=== PATIENT | female | born 1960 | race Caucasian/White ===

== ENCOUNTER 2017-03-03 16:25 | Emergency (ER) | payer MEDICARE ==
--- NOTE | 2017-03-03 17:24 | ER NURSING DOCUMENTATION ---
Nurse's Notes [facility] Name:Alyssa Dick Age:56 yrs Sex:Female :1960 Arrival Date:03/03/2017 Time:16:25 BedPortable Radiology Private MD: Diagnosis:Distal Fibula Fracture-: Acute, left Presentation: 03/03 16:28 Acuity: KEENA 4 rh 16:38 Presenting complaint: Patient states: Left ankle injury. Transition of care: Home. lp Notified ED Physician of Dr. Goldberg notified. 16:38 Method Of Arrival: Private Vehicle lp Triage Assessment: 16:40 General: Appears in no apparent distress, Behavior is appropriate for age. Pain: lp Complains of pain in left lateral ankle, left Achilles, left medial ankle and anterior aspect of left ankle Pain currently is 4 out of 10 on a pain scale. Cardiovascular: No deficits noted. Respiratory: No deficits noted. GI: : No deficits noted. Musculoskeletal: Circulation, motion, and sensation intact Capillary refill < 3 seconds other none noted mild edema. Historical: - Allergies: No known drug Allergies; - Home Meds: 1. doxycycline hyclate 75 mg oral TbEC 1 tab 2 times per day for Lyme Disease - PMHx: lyme disease; Recovering alcoholic; Spinal injury; - PSHx: Spinal Fusion; - Tetanus: < 10 years. - Ebola Screening: : Patient negative for fever greater than or equal to 101.5 degrees Fahrenheit, and additional compatible Ebola Virus Disease symptoms. Patient denies exposure to infectious person. Patient denies travel to an Ebola-affected area in the 21 days before illness onset. . - Immunization history: Pneumococcal vaccine is up to date, Flu Vaccine < 1 year. - Social history: Smoking status: Patient states former smoker of tobacco. Screenin:41 Infectious Disease Risk None. Abuse screen: Denies threats or abuse. Denies injuries lp from another. Nutritional screening: No deficits noted. Assessment: 16:41 See Triage Assessment done by same RN. lp Vital Signs: 16:41 BP 122 / 72; Pulse 82; Resp 16; Temp 98.3(TE); Pulse Ox 92% on R/A; Weight 62.14 kg; lp Height 5 ft. 6 in. (167.64 cm); Pain 4/10; 16:41 Body Mass Index 22.11 (62.14 kg, 167.64 cm) lp ED Course: 16:28 Patient arrived in ED. dp 16:28 Triage completed. rh 16:34 Amado Goldberg MD is Attending Physician. cd 16:34 Tish Montelongo, RN is Primary Nurse. lp 16:[address] Goldberg notified. lp 16:42 Valuables Remains with patient Patient has correct armband on for positive lp identification. Placed in gown. Bed in low position. Call light in reach. 17:11 Walking boot applied. cb Administered Medications: No medications were administered Outcome: 16:57 Discharge ordered by MD. cd 17:11 Discharged to home ambulatory. cb 17:11 Condition: good 17:11 Discharge Assessment: Patient awake, alert and oriented x 3. No cognitive and/or functional deficits noted. Patient verbalized understanding of disposition instructions. 17:11 Discharge instructions given to patient, Instructed on discharge instructions, follow up and referral plans. Demonstrated understanding of instructions. 17:23 Patient left the ED. cb 03/04 15:12 Discharge F/U Call: Spoke with: patient. Signatures: Krystina Restrepo, RN RN Tish Montelongo, RN RN Amado Bradley MD MD cd Abbott, Laura lea Hofsess, Rachel Georgiana Rodrigez dp
--- NOTE | 2017-03-03 17:25 | ER PHYSICIAN DOCUMENTATION ---
Physician Documentation [facility] Name:Alyssa Dick Age:56 yrs Sex:Female :1960 Arrival Date:03/03/2017 Time:16:25 BedPortable Radiology Private MD: Amado Encarnacion Disposition: 03/03/17 16:57 Discharged to Home/Self Care. Impression: Distal Fibula Fracture - : Acute, left. - Condition is Good. - Discharge Instructions: ANKLE FRACTURE (Distal Fibula), closed, Ankle - WALKER BOOT. - Medical Reconciliation form form. - Follow up: Private Physician; When: 7 - 10 days; Reason: Recheck today's complaints, Continuance of care. - Problem is new. - Symptoms have improved. - Notes: Ice and elevate left foot aboe heart tonight and tomorrow. Walker Boot until seen by your Orthopedic Surgeon. Take Ibuprofen 400mg by mouth every 6 hours with food for pain. Follow up with your Orthopedic Surgeon in 7 - 10 days. HPI: 03/03 16:30 This 56 yrs old Female presents to ER via Private Vehicle with complaints of cd Left Ankle Injury. 16:30 The patient presents with pain, that is acute, swelling. The complaints affect the left cd ankle, left lateral ankle. Onset: The symptom(s)/episode began/occurred acutely, today. Context: The problem was sustained outdoors, resulted from a mis-step by the patient, The mechanism of injury involved inversion of the affected ankle. [place] without difficulty the patient is able to ambulate. Associated signs and symptoms: The patient has no apparent associated signs or symptoms. Severity of symptoms: At their worst the symptoms were mild, in the emergency department the symptoms are unchanged. Historical: - Allergies: No known drug Allergies; - Home Meds: 1. doxycycline hyclate 75 mg oral TbEC 1 tab 2 times per day for Lyme Disease - PMHx: lyme disease; Recovering alcoholic; Spinal injury; - PSHx: Spinal Fusion; - Tetanus: < 10 years. - Ebola Screening: : Patient negative for fever greater than or equal to 101.5 degrees Fahrenheit, and additional compatible Ebola Virus Disease symptoms. Patient denies exposure to infectious person. Patient denies travel to an Ebola-affected area in the 21 days before illness onset. . - Immunization history: Pneumococcal vaccine is up to date, Flu Vaccine < 1 year. - Social history: Smoking status: Patient states former smoker of tobacco. ROS: 16:40 Constitutional: Negative for fever, chills, rigors and weight loss. cd 16:40 Skin: Negative for injury, rash, itching and discoloration. cd 16:40 MS/extremity: Positive for injury or acute deformity, swelling, tenderness, of the left lateral ankle. 16:40 All other systems are negative. Exam: 16:40 Constitutional: The patient appears alert, awake, well developed, well nourished, in cd obvious distress, mildly distressed. 16:40 Musculoskeletal/extremity: Extremities: grossly normal except: noted in the left lateral ankle: swelling, tenderness, ROM: no acute changes, Circulation is intact in all extremities. Sensation intact. Calcaneus exam normal. 16:40 Skin: Exam negative for acute changes. Vital Signs: 16:41 BP 122 / 72; Pulse 82; Resp 16; Temp 98.3(TE); Pulse Ox 92% on R/A; Weight 62.14 kg; lp Height 5 ft. 6 in. (167.64 cm); Pain 4/10; 16:41 Body Mass Index 22.11 (62.14 kg, 167.64 cm) lp MDM: 16:32 Data interpreted: Pulse oximetry: on room air is 92 %. Interpretation: normal. cd Counseling: I had a detailed discussion with the patient and/or guardian regarding: the historical points, exam findings, and any diagnostic results supporting the discharge/admit diagnosis, radiology results, the need for outpatient follow up, for a recheck, for a referral to a specialist, a orthopedic surgeon, to return to the emergency department if symptoms worsen or persist or if there are any questions or concerns that arise at home. Response to treatment: the patient's symptoms have markedly improved after treatment, and as a result, I will discharge patient. 16:34 Patient medically screened. cd 16:40 Differential diagnosis: fracture, sprain. cd 16:55 Data reviewed: vital signs, nurses notes, old medical records, radiologic studies, cd plain films, and as a result, I will discharge patient. 03/03 18:30 Order name: ANKLE; 3[place] [id number]; Complete Time: : EDMS 03/05 10:27 Interpretation: Abnormal: Nondisplaced transerve fracture of distal left fibula. cd 03/03 16:34 Order name: Ice Packs; Complete Time: 16:42 cd 03/03 17:22 Order name: Walking Boot; Complete Time: 17:22 cb Dispensed Medications: No medications were administered Signatures: Krystina Restrepo RN RN cb Pavlish, Lena, RN RN lp Daley, Chris, MD MD cd
--- NOTE | 2017-03-03 17:44 | RADIOLOGY REPORT ---
Three views of the left ankle demonstrate a nondisplaced transverse fracture of the distal fibula. The tibia, talus and mortise are intact. The visualized joints appear unremarkable. IMPRESSION: Nondisplaced transverse fracture of the left distal fibula. MTDD
== END 2017-03-03 17:24 | disposition home or self-care (01) ==
LOC: ER 16:25
DX: S82.892A Other fracture of left lower leg, initial encounter for closed fracture (principal); W18.49XA Other slipping, tripping and stumbling without falling, initial encounter; Y92.838 Other recreation area as the place of occurrence of the external cause; Y93.01 Activity, walking, marching and hiking
CPT/HCPCS: 73610; 99281; 99282; 99283